=== PATIENT | female | born 1985 | race Caucasian/White ===

== ENCOUNTER 2019-02-17 05:56 | Observation (INO) | payer OTHER ==
[~2019-02-17] VITALS: Ht 154.9 cm; Wt 53.3 kg
[2019-02-17 06:00] VITALS: BP 163/95
[2019-02-17 06:18] LABS: ABSOLUTE LYMPHOCYTES 0.7 thou/uL (0.8-5.3); ABSOLUTE MONOCYTES 0.4 thou/uL (0.0-1.2); ABSOLUTE NEUTROPHILS 3.2 thou/uL (1.6-8.1); BASOPHILS 0.9 %; EOSINOPHILS 0.2 %; HEMATOCRIT 38.6 % (37.0-47.0); HEMOGLOBIN 12.8 gm/dL (12.0-15.0); LYMPHOCYTES 15.7 %; MCHC 33.2 g/dL (28.0-37.0); MCV 81.5 fL (80.0-100.0); MPV 7.5 fl. (7.2-11.1); NUCLEATED RBCS 0 /100WBC; POLYS 74.2 %; RBC 4.74 mil/uL (4.20-5.00); RDW-CV 16.2 % (10.5-14.5); WBC 4.3 thou/uL (4.0-11.0)
[2019-02-17 06:28] LABS: PROTIME 10.7 Seconds (9.20-11.50)
[2019-02-17 06:32] LABS: CALCIUM 8.8 mg/dL (8.5-10.1); CREATININE 0.6 mg/dL (0.6-1.3)
[2019-02-17 06:36] LABS: ALBUMIN 3.4 g/dL (3.4-5.0); TOTAL BILIRUBIN 0.7 mg/dL (<0.1-1.0); TOTAL PROTEIN 7.3 g/dL (6.4-8.2)
[2019-02-17 06:42] LABS: POTASSIUM 2.9 mmol/L (3.5-5.1)
[2019-02-17 06:49] LABS: PLATELET COUNT* 63 thou/uL (150-400)
[2019-02-17 07:38] LABS: BE 0.6 mmol/L (-2 to +3); PCO2 VENOUS 33.9 mmHg (41.0-51.0); PO2 VENOUS 77.9 mmHg (35.0-45.0)
[2019-02-17 07:50] LABS: URINE BILIRUBIN NEGATIVE (Negative); URINE BLOOD 1+ (Negative); URINE CLARITY CLEAR; URINE COLOR YELLOW; URINE GLUCOSE-RANDOM NEGATIVE (Negative); URINE KETONES 2+ (Negative); URINE LEUKOCYTES-REFLEX 2+ (Negative); URINE NITRITE-REFLEX NEGATIVE (Negative); URINE PROTEIN 2+ (Negative); URINE SPECIFIC GRAVITY >= 1.030 (1.005-1.030); URINE UROBILINOGEN 0.2 E.U./dl (0.2-1.0)
[2019-02-17 08:04] LABS: BACTERIA-REFLEX >30 Many /HPF (None Seen); CASTS None Seen /LPF (None Seen); CRYSTALS None Seen /LPF (None Seen); MUCUS 0-3 Light strn/LPF (None Seen); SQUAMOUS 0-3 Few /LPF (0-3); URINE RBC 3-10 Few /HPF (0-2); URINE WBC-REFLEX 6-15 Few /HPF (0-5)
[2019-02-17 11:46] VITALS: BP 116/96
--- NOTE | 2019-02-17 14:10 | EKG ---
[place] [address] ELECTROCARDIOGRAM REPORT Name: ELBA KIRBY Room: [address] ADM IN M.R.#: [id number] Admission: 02/17/19 Attend Phys: Domo Martinez MD Discharge: Date of : 83 Report #: [id number] THIS REPORT FOR: //name// [facility] ED Test Date: 2019-02-17 Test Time: 07:04:51 Pat Name: ELBA KIRBY Department: Room: [facility] Gender: F Partner Manager: [place] : 1985 Requested By: Yareli Prado Order Number: [id number] MD: Mark Avila Measurements Intervals [place] Rate: 90 P: 63 NM: 156 QRS: 80 QRSD: 114 T: 39 QT: 401 QTc: 491 Interpretive Statements Sinus rhythm Borderline intraventricular conduction delay Nonspecific T abnormalities, lateral leads Borderline prolonged QT interval No previous ECG available for comparison Electronically Signed On 02-17-2019 14:10:21 DOG CATCHER by Mark Avila [email or web address] <ELECTRONICALLY SIGNED> By: Mark Avila MD, [facility] 02/17/19 1410 [id number] [id number] Mark Avila MD, FAC /EPI
[2019-02-17 16:00] VITALS: BP 139/82
[2019-02-17 20:00] VITALS: BP 155/93
[2019-02-18] VITALS: BP 153/94
[2019-02-18 04:00] VITALS: BP 119/80
[2019-02-18 05:05] LABS: ABSOLUTE LYMPHOCYTES 1.4 thou/uL (0.8-5.3); ABSOLUTE MONOCYTES 0.4 thou/uL (0.0-1.2); ABSOLUTE NEUTROPHILS 2.4 thou/uL (1.6-8.1); BASOPHILS 0.8 %; EOSINOPHILS 0.9 %; HEMATOCRIT 36.1 % (37.0-47.0); HEMOGLOBIN 11.8 gm/dL (12.0-15.0); LYMPHOCYTES 33.2 %; MCH 27.2 pg (26.0-34.0); MCHC 32.7 g/dL (28.0-37.0); MCV 83.1 fL (80.0-100.0); MONOCYTES 9.6 %; MPV 8.2 fl. (7.2-11.1); NUCLEATED RBCS 0 /100WBC; POLYS 55.5 %; RBC 4.34 mil/uL (4.20-5.00); RDW-CV 15.7 % (10.5-14.5); WBC 4.3 thou/uL (4.0-11.0)
[2019-02-18 05:17] LABS: CALCIUM 7.6 mg/dL (8.5-10.1); CREATININE 0.5 mg/dL (0.6-1.3)
[2019-02-18 05:21] LABS: PLATELET COUNT* 48 thou/uL (150-400)
[2019-02-18 08:00] VITALS: BP 136/87
[2019-02-18 11:34] VITALS: BP 136/87
[2019-02-18 11:51] VITALS: BP 123/88
[2019-02-18] MEDS ORDERED: NOVOLOG100 UNIT/1 SUBQ (13:02)
[2019-02-18] MEDS ORDERED: ACCU-CHEK1 EACH SUBQ (13:03)
[2019-02-18] MEDS ORDERED: ACCU-CHEK GUID1 EACH SUBQ (13:05)
[2019-02-18] MEDS ORDERED: [UNRECOGNIZED DRUG - OTHER] SUBQ (13:06)
[2019-02-18] MEDS ORDERED: ALCOHOL PADS1 EAC1 SUBQ (13:07)
[2019-02-19 02:07] LABS: GLYCOHEMOGLOBIN (HGB A1C) 7.1 % (4.8-5.6)
== END 2019-02-18 13:45 | disposition home or self-care (01) ==
LOC: M.ERS 05:56 → M.2W 08:09 → M.TBA-ER 08:09 → M.2W 08:09
PROVIDERS: Emergency Medicine; Internal Medicine; ADMIT Internal Medicine
DX: F10.129 Alcohol abuse with intoxication, unspecified (principal); E86.0 Dehydration; E87.6 Hypokalemia; E11.9 Type 2 diabetes mellitus without complications; R74.0 Nonspecific elevation of levels of transaminase and lactic acid dehydrogenase [LDH]; F17.210 Nicotine dependence, cigarettes, uncomplicated

== ENCOUNTER 2019-04-25 07:59 | Inpatient (IN) | payer OTHER, MEDICAID ==
[2019-04-25] VITALS (15 sets, daily range): BP systolic 117–158; BP diastolic 66–102
[~2019-04-25] VITALS: Ht 154.9 cm; Wt 46.7 kg
[~2019-04-25 07:59] MED LIST: ACCU-CHEK GUID1 EACH SUBQ; ACCU-CHEK1 EACH SUBQ; ALCOHOL PADS1 EAC1 SUBQ; NOVOLOG100 UNIT/1 SUBQ; [UNRECOGNIZED DRUG - OTHER] SUBQ
[2019-04-25 08:43] LABS: BE -13.4 mmol/L (-2 to +3); HEMATOCRIT 49.7 % (37.0-47.0); HEMOGLOBIN 16.2 gm/dL (12.0-15.0); MCH 28.6 pg (26.0-34.0); MCHC 32.6 g/dL (28.0-37.0); MCV 87.8 fL (80.0-100.0); MPV 8.5 fl. (7.2-11.1); NUCLEATED RBCS 0 /100WBC; PCO2 VENOUS 29.1 mmHg (41.0-51.0); PLATELET COUNT* 86 thou/uL (150-400); PO2 VENOUS 36.3 mmHg (35.0-45.0); RBC 5.66 mil/uL (4.20-5.00); RDW-CV 19.6 % (10.5-14.5); WBC 14.5 thou/uL (4.0-11.0)
[2019-04-25 08:52] LABS: CALCIUM 8.4 mg/dL (8.5-10.1); CREATININE 1.8 mg/dL (0.6-1.3)
[2019-04-25 09:30] LABS: ABSOLUTE LYMPHOCYTES 0.3 thou/uL (0.8-5.3); ABSOLUTE MONOCYTES 1.2 thou/uL (0.0-1.2); ABSOLUTE NEUTROPHILS 13.1 thou/uL (1.6-8.1); PLATELET ESTIMATE DECREASED
[2019-04-25 09:31] LABS: ANISOCYTOSIS 1+
[2019-04-25 09:33] LABS: INR 1.1; PROTIME 11.7 Seconds (9.20-11.50)
[2019-04-25 12:35] LABS: CALCIUM 6.4 mg/dL (8.5-10.1); CREATININE 1.2 mg/dL (0.6-1.3); MAGNESIUM 1.7 mg/dL (1.8-2.4)
[2019-04-25 12:36] LABS: POTASSIUM 2.7 mmol/L (3.5-5.1)
[2019-04-25 14:53] LABS: URINE BLOOD 2+ (Negative); URINE CLARITY CLEAR; URINE COLOR YELLOW; URINE GLUCOSE-RANDOM TRACE (Negative); URINE LEUKOCYTES-REFLEX NEGATIVE (Negative); URINE NITRITE-REFLEX NEGATIVE (Negative); URINE PROTEIN 1+ (Negative); URINE UROBILINOGEN 0.2 E.U./dl (0.2-1.0)
[2019-04-25 14:54] LABS: ICTOTEST (BILI CONFIRMATORY) Negative (Negative); URINE BILIRUBIN 2+ (Negative); URINE KETONES 3+ (Negative)
[2019-04-25 15:04] LABS: SQUAMOUS 0-3 Few /LPF (0-3)
[2019-04-25 15:05] LABS: BACTERIA-REFLEX 1-9 Few /HPF (None Seen); MUCUS 4-6 Moderate strn/LPF (None Seen); URINE RBC 0-2 Rare /HPF (0-2); URINE WBC-REFLEX 0-5 Rare /HPF (0-5)
[2019-04-25 15:06] LABS: CRYSTALS None Seen /LPF (None Seen); HYALINE CASTS >10 Many /LPF (None Seen)
[2019-04-25 15:07] LABS: FINE GRANULAR CASTS 0-3 Few /LPF (None Seen)
[2019-04-25 16:25] LABS: CALCIUM 6.3 mg/dL (8.5-10.1); MAGNESIUM 1.6 mg/dL (1.8-2.4)
[2019-04-25 16:26] LABS: POTASSIUM 4.4 mmol/L (3.5-5.1)
[2019-04-25 20:29] LABS: CALCIUM 6.6 mg/dL (8.5-10.1); MAGNESIUM 2.5 mg/dL (1.8-2.4); POTASSIUM 3.7 mmol/L (3.5-5.1)
[2019-04-26] VITALS (13 sets, daily range): BP systolic 115–130; BP diastolic 77–102
[2019-04-26 00:37] LABS: CALCIUM 6.5 mg/dL (8.5-10.1); CREATININE 0.9 mg/dL (0.6-1.3); POTASSIUM 4.2 mmol/L (3.5-5.1)
[2019-04-26 04:27] LABS: ABSOLUTE LYMPHOCYTES 0.5 thou/uL (0.8-5.3); ABSOLUTE MONOCYTES 0.6 thou/uL (0.0-1.2); ABSOLUTE NEUTROPHILS 6.2 thou/uL (1.6-8.1); BASOPHILS 0.3 %; HEMATOCRIT 33.1 % (37.0-47.0); LYMPHOCYTES 6.4 %; MCH 29.1 pg (26.0-34.0); MCHC 34.1 g/dL (28.0-37.0); MCV 85.5 fL (80.0-100.0); MONOCYTES 8.1 %; MPV 7.6 fl. (7.2-11.1); NUCLEATED RBCS 0 /100WBC; PLATELET COUNT* 55 thou/uL (150-400); POLYS 85.2 %; RBC 3.88 mil/uL (4.20-5.00); RDW-CV 20.3 % (10.5-14.5); WBC 7.3 thou/uL (4.0-11.0)
[2019-04-26 04:29] LABS: HEMOGLOBIN 11.3 gm/dL (12.0-15.0)
[2019-04-26 04:55] LABS: ALBUMIN 2.4 g/dL (3.4-5.0); CALCIUM 6.5 mg/dL (8.5-10.1); CREATININE 0.7 mg/dL (0.6-1.3); PHOSPHORUS* 0.7 mg/dL (2.5-4.9); POTASSIUM 4.2 mmol/L (3.5-5.1); TOTAL BILIRUBIN 1.6 mg/dL (<0.1-1.0); TOTAL PROTEIN 5.8 g/dL (6.4-8.2)
[2019-04-26 08:26] LABS: CALCIUM 6.5 mg/dL (8.5-10.1); CREATININE 0.7 mg/dL (0.6-1.3); MAGNESIUM 1.9 mg/dL (1.8-2.4)
--- NOTE | 2019-04-26 08:44 | EKG ---
[place] [address] ELECTROCARDIOGRAM REPORT Name: KIRBYELBA Room: [address] IN .R.#: [id number] Admission: 04/25/19 Attend Phys: Domo Martinez, Discharge: Date of : 83 Date of Service: 04/25/19 0804 Report #: [id number] THIS REPORT FOR: //name// [facility] ED Test Date: 2019-04-25 Test Time: 08:04:12 Pat Name: ELBA KIRBY Department: Room: [facility] Gender: F [employer] Supervisor: [facility] : 1985 Requested By: Rowyd Rankin Order Number: [id number] MD: Federico Genao Measurements Intervals [place] Rate: 132 P: 69 MS: 130 QRS: 73 QRSD: 91 T: 25 QT: 311 QTc: 461 Interpretive Statements Sinus tachycardia LAE, consider biatrial enlargement RSR' in V1 or V2, right VCD or RVH Compared to ECG 02/17/2019 07:04:51 RSR' in V1 or V2 now present Sinus rhythm no longer present Electronically Signed On 04-26-2019 8:43:49 [employer] by Federico Genao [email or web address] <ELECTRONICALLY SIGNED> By: Federico Genao MD, [facility] 04/26/1944 3 3 Federico Genao MD, [facility] /EPI
[2019-04-26 09:50] LABS: CHOLESTEROL 151 mg/dL (<200); HDL CHOLESTEROL 25 mg/dL (>40); LDL CHOLESTEROL 96 mg/dL (<100); TRIGLYCERIDE 154 mg/dL (<150); VLDL 31 mg/dL (<40)
[2019-04-26 09:51] LABS: SERUM ASSESSMENT Clear
--- NOTE | 2019-04-26 13:31 | 2DMMODE ---
[place] [address] 2 D/M-MODE ECHOCARDIOGRAM Name: KOFIELBA Aleksey Room: [address] IN .R.#: [id number] Admission: 04/25/19 Attend Phys: Domo Martinez, Discharge: Date of : 83 Date of Service: 04/26/19 1330 Report #: [id number] THIS REPORT FOR: cc: FAM - No family physician/PCP FAM - No family physician/PCP Federico Genao MD [facility] ~ APPROVED REPORT Study performed: 04/26/2019 10:09:42 EXAM: Comprehensive 2D, Doppler, and color-flow Echocardiogram Patient Location: In-Patient Room #: 004 Status: routine BSA: 1.42 HR: 119 bpm BP: 119/90 mmHg Rhythm: NSR Other Information Study Quality: Good Indications Acute RI 2D Dimensions IVSd: 9.55 (7-11mm) LVOT Diam: 17.82 (18-24mm) LVDd: 42.55 mm PWd: 9.02 (7-11mm) Ascending Ao: 23.53 (22-36mm) LVDs: 33.02 (25-40mm) Aortic Root: 24.95 mm Volumes Left Atrial Volume (Systole) LA ESV Index: 18.20 mL/m2 Aortic Valve AoV Peak Scooter.: 1.36 m/s AO Peak Gr.: 7.43 mmHg LVOT Max P.17 mmHg AO Mean Gr.: 4.37 mmHg LVOT Mean P.41 mmHg LVOT Max V: 1.02 m/s AO V2 VTI: 18.09 cm LVOT Mean V: 0.74 m/s GALLO (VTI): 2.03 cm2 LVOT V1 VTI: 14.75 [place] [address] 2 D/M-MODE ECHOCARDIOGRAM Name: ELBA KIRBY Room: [address]#: [id number] Admission: 04/25/19 Attend Phys: Domo Martinez, Discharge: Date of : 83 Date of Service: 04/26/19 1330 Report #: [id number] Mitral Valve E/A Ratio: 0.73 MV Decel. Time: 203.05 ms MV E Max Scooter.: 0.75 m/s MV PHT: 58.88 ms MVA (PHT): 3.74 cm2 TDI E/Lateral E': 15.00 E/Medial E': 12.50 Medial E' Scooter.: 0.06 m/s Lateral E' Scooter.: 0.05 m/s Pulmonary Valve PV Peak Scooter.: 1.02 m/s PV Peak Gr.: 4.14 mmHg Left Ventricle The left ventricle is normal size. Regional wall motion abnormalities are noted. There is normal left ventricular wall thickness. Left ventricular systolic function is borderline. LVEF is 50-55%. Grade I - abnormal relaxation pattern. Right Ventricle The right ventricle is normal size. The right ventricular systolic function is normal. Atria The left atrium size is normal. The right atrium size is normal. Aortic Valve The aortic valve is normal in structure. No aortic regurgitation is present. There is no aortic valvular stenosis. Mitral Valve The mitral valve is normal in structure. There is no mitral valve regurgitation noted. No evidence of mitral valve stenosis. Tricuspid Valve The tricuspid valve is normal in structure. Unable to assess PA pressure. Trace tricuspid regurgitation. Pulmonic Valve Pulmonic valve is not well visualized. There is no pulmonic valvular regurgitation[place] [address] 2 D/M-MODE ECHOCARDIOGRAM Name: ELBA KIRBY Room: [address] IN [facility]#: [id number] Admission: 04/25/19 Attend Phys: Domo Martinez, Discharge: Date of : 83 Date of Service: 04/26/19 1330 Report #: [id number] The aortic root is normal in size. IVC is normal in size and collapses >50% with inspiration. Pericardium There is no pericardial effusion. <Conclusion> LVEF is 50-55%. <ELECTRONICALLY SIGNED> By: Federico Genao MD, FACC 04/26/19 133 29 29 Federico Genao MD, FACC /INF
--- NOTE | 2019-04-26 17:21 | CON ---
[address] [address] CONSULTATION Name: ELBA KIRBY Room: [address] IN M.R.#: [id number] Admission: 04/25/19 Attend Phys: Domo Martinez MD Discharge: Date of : 83 Report #: [id number] THIS REPORT FOR: //name// cc: TERRY Farias family physician/PCP TERRY Farias family physician/PCP ~ THIS REPORT FOR: //name// CC: Domo STEWART physician/PCP DATE OF SERVICE: 04/26/2019 CARDIOLOGY CONSULTATION HISTORY OF PRESENT ILLNESS: The patient is a 33-year-old single white female who I was asked to see in the hospital after she was noted to have an elevated troponin. The patient states she has had a heart murmur in the past. She is not very active at this time. She notes that 4 years ago, she was admitted to [facility] on the [place] with nausea and vomiting. She was found to have DKA. She was placed on insulin. However, because of lack of insurance and funds, she ran out of her insulin. She was doing well until several days ago, she developed nausea and vomiting. There was no blood in her vomit. Denied diarrhea, fever, or abdominal pain. Because of the nausea and vomiting and lack of appetite, she was brought to the Emergency Room yesterday by her grandfather. She was found to be in DKA. Central line was placed through the right internal jugular vein. She was given fluids and insulin. She was noted to have elevated troponin. I was asked to see her for further evaluation and treatment. She denies any chest tightness or arm pain. She denies shortness of breath. She does note occasional irregular heartbeat, but no syncope or edema. PAST MEDICAL HISTORY: She has had no surgical procedures. She is , last menstrual period was 2 days ago. She has no history of hypertension or hyperlipidemia. She is currently on no medications. ALLERGIES: She has no known drug allergies. FAMILY HISTORY: Her father had diabetes. SOCIAL HISTORY: She is single, never been . Used to work in the [employer]. Currently lives with her grandfather here in [place]. She smoked half pack of cigarettes a day. She used to drink whiskey every day. REVIEW OF SYSTEMS: She has had no history of stroke. She has a chronic cough. No history of liver disease, kidney disease, cancer, psychiatric illness, or chronic skin condition. She denies a history of blackout spells[place] [address] CONSULTATION Name: ELBA KIRBY Aleksey Room: [address]#: [id number] Admission: 04/25/19 Attend Phys: Domo Martinez MD Discharge: Date of : 83 Report #: [id number] PHYSICAL EXAMINATION: GENERAL: Reveals a young white female who appears in no distress. VITAL SIGNS: She has a blood pressure of 120/70 and pulse is 100. She is afebrile. HEENT: She is anicteric. Conjunctivae pink. Mucous membranes moist. NECK: Veins are nondistended. CHEST: Clear to auscultation. CARDIOVASCULAR: Regular rate and rhythm. No significant murmur. ABDOMEN: Soft. EXTREMITIES: Had no edema. Dorsalis pedis pulse cannot be palpated. SKIN: Cool and dry. NEUROLOGIC: Nonfocal. RADIOLOGICAL DATA: ECG showed a sinus tachycardia, incomplete right bundle branch block, nonspecific ST-segment changes. Her workup in the Emergency Room last night included a chest x-ray that showed normal heart size, clear lung chahal. LABORATORY DATA: Sodium 137, BUN initially was 31, creatinine was 1.8, glucose was 491, CO2 was 13. Her albumin was 2.4. Troponin 0.36. BNP 739. Her white blood cell count 7.3, hematocrit 33.1. IMPRESSION AND RECOMMENDATIONS: 1. Diabetes. The patient ran out of her insulin. 2. Diabetic ketoacidosis. The patient is receiving insulin and fluids. 3. Elevated troponin. Suspect type 2 myocardial infarction. I would recommend an echocardiogram. The patient has no history of angina. I would check a lipid profile. 4. Renal insufficiency, suspect secondary dehydration. 5. Tobacco abuse. 6. History of alcohol abuse. <ELECTRONICALLY SIGNED> By: Federico Genao MD, FACC 04/26/19 1721 0733 [id number] Genao MD, FACC /nt
[2019-04-27 09:00] VITALS: BP 117/76
[2019-04-27 16:00] VITALS: BP 111/68
[2019-04-27 21:00] VITALS: BP 106/66
[2019-04-28 01:48] LABS: URINE BILIRUBIN NEGATIVE (Negative); URINE BLOOD NEGATIVE (Negative); URINE CLARITY CLEAR; URINE COLOR YELLOW; URINE GLUCOSE-RANDOM NEGATIVE (Negative); URINE KETONES NEGATIVE (Negative); URINE LEUKOCYTES 1+ (Negative); URINE NITRITE POSITIVE (Negative); URINE PROTEIN NEGATIVE (Negative); URINE UROBILINOGEN 0.2 E.U./dl (0.2-1.0)
[2019-04-28 01:50] LABS: AMP/METHAMP Negative (Negative); BARBITURATES Negative (Negative); BENZODIAZEPINES Negative (Negative); COCAINE Negative (Negative); METHADONE Negative (Negative); OPIATES Negative (Negative); PCP Negative (Negative); THC Negative (Negative)
[2019-04-28 02:27] LABS: CASTS None Seen /LPF (None Seen); SQUAMOUS NONE SEEN /LPF (0-3); URINE RBC 0-2 Rare /HPF (0-2); URINE WBC 6-15 Few /HPF (0-5)
[2019-04-28 02:28] LABS: BACTERIA >30 Many /HPF (None Seen); CRYSTALS None Seen /LPF (None Seen)
[2019-04-28 05:47] LABS: CALCIUM 7.4 mg/dL (8.5-10.1); CREATININE 0.4 mg/dL (0.6-1.3); MAGNESIUM 1.4 mg/dL (1.8-2.4); PHOSPHORUS* 1.3 mg/dL (2.5-4.9)
[2019-04-28 06:08] LABS: POTASSIUM 2.3 mmol/L (3.5-5.1)
[2019-04-28 09:00] VITALS: BP 107/75
[2019-04-28] MEDS ORDERED: HUMALOG100 UNIT/1 SUBQ (13:07)
[2019-04-28] MEDS ORDERED: LANTUS SUBQ (13:07)
[2019-04-28] MEDS ORDERED: ACCU-CHEK1 EACH SUBQ (13:09)
[2019-04-28] MEDS ORDERED: PRENATAL PO (13:09)
[2019-04-28] MEDS ORDERED: [UNRECOGNIZED DRUG - OTHER] SUBQ (13:09)
[2019-04-28] MEDS ORDERED: ALCOHOL PADS1 EAC1 SUBQ (13:09)
[2019-04-28 16:00] VITALS: BP 104/61
[2019-04-28 20:30] VITALS: BP 108/79
[2019-04-28 22:36] LABS: MAGNESIUM 1.4 mg/dL (1.8-2.4); PHOSPHORUS* 0.9 mg/dL (2.5-4.9)
[2019-04-28 22:39] LABS: POTASSIUM 3.5 mmol/L (3.5-5.1)
[2019-04-29 08:00] VITALS: BP 105/68
[2019-04-29] MEDS ORDERED: PROBIOTIC1 EAC7 PO (15:54)
[2019-04-29 15:55] VITALS: BP 105/68
[2019-04-30] MEDS ORDERED: LANTUS SUBQ (09:38)
[2019-04-30] MEDS ORDERED: HUMALOG100 UNIT/1 SUBQ (09:38)
[2019-04-30] MEDS ORDERED: ONE TOUCH VERI EAC TOP (09:42)
[2019-04-30] MEDS ORDERED: ONE TOUCH VERI1 EACH TOP (10:41)
== END 2019-04-29 16:23 | disposition home or self-care (01) | DRG 638 ==
LOC: M.ERS 07:59 → M.ICU 10:11 → M.TBA-ER 10:11 → M.ICU 11:20 → M.3W 04-26 17:25
PROVIDERS: Family Medicine; Internal Medicine Cardiovascular Disease; ADMIT Internal Medicine
PROC: 02HV33Z Insertion of Infusion Device into Superior Vena Cava, Percutaneous Approach (ICD-10-PCS; principal; 2019-04-25)
PROC: B548ZZA Ultrasonography of Superior Vena Cava, Guidance (ICD-10-PCS; principal; 2019-04-25)
DX: E11.10 Type 2 diabetes mellitus with ketoacidosis without coma (principal); N17.9 Acute kidney failure, unspecified; E87.1 Hypo-osmolality and hyponatremia; Y90.9 Presence of alcohol in blood, level not specified; E87.6 Hypokalemia; F17.210 Nicotine dependence, cigarettes, uncomplicated; D69.6 Thrombocytopenia, unspecified; E86.0 Dehydration; E83.39 Other disorders of phosphorus metabolism; E53.8 Deficiency of other specified B group vitamins; E83.42 Hypomagnesemia; F10.229 Alcohol dependence with intoxication, unspecified; Z91.19 Patient's noncompliance with other medical treatment and regimen; Z79.899 Other long term (current) drug therapy; Z79.4 Long term (current) use of insulin